=== PATIENT | female | born 1995 | race Asian ===

== ENCOUNTER 2020-04-21 10:31 | Emergency (ER) | payer OTHER ==
[~2020-04-21] VITALS: Ht 154.9 cm; Wt 55.5 kg
[2020-04-21] MEDS ORDERED: ACETAMINOPHEN 500 MG TAB PO ONE (11:15)
--- OUTSIDE RECORDS SUMMARY | 2020-04-21 11:23 | CCD ---
Author Author [facility] Address Unknown Phone Unavailable Support Name Relationship Address Phone UE Next Of Kin Unknown Unavailable [address] Next Of Kin [id number] [place] [id number] Re-disclosure Warning The records that you are about to access may contain information from federally-assisted alcohol or drug abuse programs. If such information is present, then the following federally mandated warning applies: This information has been disclosed to you from records protected by federal confidentiality rules (42 CFR part 2). The federal rules prohibit you from making any further disclosure of this information unless further disclosure is expressly permitted by the written consent of the person to whom it pertains or as otherwise permitted by 42 CFR part 2. A general authorization for the release of medical or other information is NOT sufficient for this purpose. The Federal rules restrict any use of the information to criminally investigate or prosecute any alcohol or drug abuse patient.The records that you are about to access may contain highly sensitive health information, the redisclosure of which is protected by Article 27-F of the [facility] Public Health law. If you continue you may have access to information: Regarding HIV / AIDS; Provided by facilities licensed or operated by the [facility] Office of Mental Health; or Provided by the [facility] Office for People With Developmental Disabilities. If such information is present, then the following [facility] mandated warning applies: This information has been disclosed to you from confidential records which are protected by state law. State law prohibits you from making any further disclosure of this information without the specific written consent of the person to whom it pertains, or as otherwise permitted by law. Any unauthorized further disclosure in violation of state law may result in a fine or penitentiary sentence or both. A general authorization for the release of medical or other information is NOT sufficient authorization for further disc losure. Insurance Providers Payer name Policy type / Coverage type Policy ID Covered constitution party ID Covered constitution party's relationship to prather Policy Prather Plan Information [employer] [id number] [place] [id number]
[2020-04-21 11:31] LABS: BASO # 0.1 10^3/uL (0.0-0.2); BASO % 1.5 % (0.0-1.0); EOS # 0.4 10^3/uL (0.0-0.5); EOS % 5.8 % (0.0-3.0); HEMATOCRIT 38.9 % (36.0-47.0); HEMOGLOBIN 12.7 g/dl (12.0-15.5); LYMPH # 1.9 10^3/uL (1.5-5.0); LYMPH % 31.1 % (24.0-44.0); MEAN CORPUSCULAR HEMOGLOBIN 28.1 pg (27.0-33.0); MEAN CORPUSCULAR HGB CONC 32.6 g/dl (32.0-36.5); MEAN CORPUSCULAR VOLUME 86.1 fl (80.0-96.0); MONO # 0.5 10^3/uL (0.0-0.8); MONO % 7.5 % (2.0-8.0); NEUTROPHILS # 3.3 10^3/uL (1.5-8.5); NEUTROPHILS % 53.9 % (36.0-66.0); PLATELET COUNT, AUTOMATED 282 10^3/uL (150-450); RED BLOOD COUNT 4.52 10^6/uL (4.00-5.40)
[2020-04-21 11:58] LABS: BLOOD UREA NITROGEN 12 MG/DL (7-18); CALCIUM LEVEL 9.1 MG/DL (8.5-10.1); CARBON DIOXIDE LEVEL 30 MEQ/L (21-32); CHLORIDE LEVEL 107 MEQ/L (98-107); CREATININE FOR GFR 0.75 MG/DL (0.55-1.30); GLOMERULAR FILTRATION RATE > 60.0 (>60); GLUCOSE, FASTING 93 MG/DL (70-100); HCG, SERUM QUANTITATIVE < 1.0 MIU/ML; POTASSIUM SERUM 3.6 MEQ/L (3.5-5.1); SODIUM LEVEL 142 MEQ/L (136-145)
[2020-04-21 12:39] LABS: ALT/SGPT 16 U/L (12-78); BILIRUBIN,DIRECT 0.1 MG/DL (0.0-0.2); BILIRUBIN,TOTAL 0.5 MG/DL (0.2-1.0); TOTAL PROTEIN 6.7 GM/DL (6.4-8.2)
--- NOTE | 2020-04-21 14:18 | REP ---
INDICATION: pelvic pain. COMPARISON: None. TECHNIQUE: Transabdominal and transvaginal scanning were performed. FINDINGS: Uterine dimensions are normal at 10.3 x 3.8 x 4.0 cm. Endometrial echo is 0.9 cm thick and centrally placed. No free fluid is seen in the cul-de-sac. Visualized bladder stern are smooth. The right ovary has dimensions of 2.6 x 1.7 x 2.5 cm. It's Doppler flow is normal with a resistive index of 0.62. The left ovary dimensions are normal as well at 2.3 x 1.1 x 2.3 cm. It's Doppler flow was normal with resistive index of 0.66. Transabdominal and transvaginal imaging demonstrates a midline hypoechoic nodule anterior to the vagina at the bladder base. This measures 1.5 x 1.3 by 1.9 cm. It is in the region of the urethra. It is unusual to be able to visualize the bladder floor as clearly as we do in this patient and I am not totally convinced this is an abnormality. A urethral or periurethral cyst could conceivably have this appearance versus a normal urethra and attendant sphincter musculature. This does not appear to be in the vaginal wall but anterior to it. No other abnormality.. IMPRESSION: Possible urethral or periurethral nodule or cyst, 1.5 x 1.3 x 1.9 cm. Pelvic MRI study could be considered for further evaluation if clinically warranted. Otherwise normal pelvic sonography. <Electronically signed by Garcia Chen > 04/21/20 [id number]
[2020-04-21 14:27] LABS: CHLAMYDIA DNA AMPLIFICATION NEGATIVE (NEGATIVE); GC DNA AMPLIFICATION NEGATIVE (NEGATIVE)
[2020-04-21] MEDS ORDERED: ENEMCAP PR (19:00)
[2020-04-21] MEDS ORDERED: MAGN100T PO (19:00)
[2020-04-21] MEDS ORDERED: PROHANCE 279.3MG/ML 5ML VIAL As Ordered ONE (19:03)
--- NOTE | 2020-04-21 19:41 | REPVR ---
PROCEDURE INFORMATION: Exam: MR Pelvis Without and With Contrast Exam date and time: 04/21/2020 7:19 PM Age: 24 years old Clinical indication: Pain and abnormal findings; Abnormal imaging test; Vaginal pain and other: Urethral; Additional info: R/O urethral or periurethral nodule vs abscess TECHNIQUE: Imaging protocol: Magnetic resonance images of the pelvis without and with intravenous contrast. Contrast material: PROHANCE; Contrast volume: 10 ml; Contrast route: INTRAVENOUS (IV); COMPARISON: US PELVIC NON-OB COMPLETE 04/21/2020 1:12 PM FINDINGS: Intraperitoneal space: There is minimal fluid in the cul-de-sac most likely physiologic. Clinical correlation to exclude other causes of cul-de-sac fluid suggested. Reproductive: Bladder and urethra appear unremarkable. Previously sonographically demonstrated nodular density in the region of the urethra is not visualized on this examination. Ovaries and adnexal regions appear unremarkable. Bones/joints: Unremarkable. No fracture. Soft tissues: Unremarkable. IMPRESSION: 1. There is minimal fluid in the cul-de-sac most likely physiologic. Clinical correlation to exclude other causes of cul-de-sac fluid suggested. 2. Bladder and urethra appear unremarkable. Previously sonographically demonstrated nodular density in the region of the urethra is not visualized on this examination. Electronically signed by: Robert Johnson On 04/21/2020 19:41:34 PM
[2020-04-21 19:49] VITALS: BP 118/70
[2020-04-22] MEDS ORDERED: METR-265 PO (08:05)
--- NOTE | 2020-04-23 14:18 | ED PDOC ---
Post-Departure Follow-Up radiology report faxed to patti Olivas Sarah MD Apr 23, 2020 14:18
== END 2020-04-21 19:54 | disposition home or self-care (01) ==
LOC: M ED 10:31
DX: N94.10 Unspecified dyspareunia (principal); Z87.59 Personal history of other complications of pregnancy, childbirth and the puerperium; R93.5 Abnormal findings on diagnostic imaging of other abdominal regions, including retroperitoneum
CPT/HCPCS: 72197; 76830; 76856; 80048; 80076; 81001; 84702; 85025; 87210; 87661; 93976; 99284; A9576

== ENCOUNTER → 2020-07-15 | Outpatient (REF) | payer OTHER ==
[~2020-07-15] MED LIST: ENEMCAP PR; MAGN100T PO; METR-265 PO
[2020-07-15 19:46] LABS: CHLAMYDIA DNA AMPLIFICATION NEGATIVE (NEGATIVE); GC DNA AMPLIFICATION NEGATIVE (NEGATIVE)
== END ==
LOC: M SFHCWAGY 17:01
PROVIDERS: ATTEND Nurse Practitioner Women's Health
DX: Z12.4 Encounter for screening for malignant neoplasm of cervix (principal)
CPT/HCPCS: 87491; 87591; G0123

== ENCOUNTER 2021-02-11 13:34 | Emergency (ER) | payer OTHER ==
[~2021-02-11] VITALS: Ht 154.9 cm; Wt 52.8 kg
[2021-02-11 13:34] VITALS: BP 127/57
[2021-02-11] MEDS ORDERED: IBUP200C29 PO (13:49)
[2021-02-11] MEDS ORDERED: NS 1,000 ML IV ONE (18:00)
[2021-02-11] MEDS ORDERED: KETOROLAC 30 MG/ML 1ML VIAL IV ONE (18:00)
[2021-02-11] MEDS ORDERED: diphenhydrAMINE 50MG/ML VIAL (J1200) IV ONE (18:00)
[2021-02-11] MEDS ORDERED: ONDANSETRON 4MG/2ML VIAL IV ONE (18:00)
[2021-02-11 18:30] LABS: HEMATOCRIT 38.8 % (36.0-47.0); HEMOGLOBIN 13.1 g/dl (12.0-15.5); MEAN CORPUSCULAR HEMOGLOBIN 28.9 pg (27.0-33.0); MEAN CORPUSCULAR HGB CONC 33.8 g/dl (32.0-36.5); MEAN CORPUSCULAR VOLUME 85.7 fl (80.0-96.0); PLATELET COUNT, AUTOMATED 292 10^3/uL (150-450); RED BLOOD COUNT 4.53 10^6/uL (4.00-5.40); WHITE BLOOD COUNT 6.3 10^3/uL (4.0-10.0)
[2021-02-11] MEDS ORDERED: SUMAtriptan SUCCINATE 25 MG TAB PO ONE (19:55)
[2021-02-11] MEDS ORDERED: ACETAMINOPHEN 500 MG TAB PO ONE (19:55)
[2021-02-11] MEDS ORDERED: SUMA50TA2 PO (20:47)
== END 2021-02-11 21:03 | disposition home or self-care (01) ==
LOC: M ED 13:34
DX: G43.909 Migraine, unspecified, not intractable, without status migrainosus (principal); Z86.69 Personal history of other diseases of the nervous system and sense organs
CPT/HCPCS: 70450; 80047; 84702; 85027; 96374; 96375; 99283; J1200; J1885; J2405

== ENCOUNTER 2021-10-18 19:16 | Emergency (ER) | payer OTHER ==
[~2021-10-18] VITALS: Ht 154.9 cm; Wt 54.5 kg
[~2021-10-18 19:16] MED LIST changes: +IBUP200C29 PO; +SUMA50TA2 PO
[2021-10-18 20:57] LABS: RBC, URINE 0-1 /hpf (0-3)
[2021-10-18 20:58] LABS: BACTERIA, URINE SMALL AMOUNT; HYALINE CAST, URINE NONE SEEN /lpf (0-1); MUCUS, URINE MOD AMOUNT (NEGATIVE); SQUAMOUS EPITHELIAL CELL URINE LARGE AMOUNT /hpf (SMALL AMT)
[2021-10-18] MEDS ORDERED: ONDANSETRON 4MG 2ML VIAL IV ONE (21:55)
[2021-10-18] MEDS ORDERED: NS 1,000 ML IV ONE (21:55)
[2021-10-18] MEDS ORDERED: ACETAMINOPHEN 325 MG TAB PO ONE (22:15)
[2021-10-18 22:33] LABS: BASO # 0.1 10^3/uL (0.0-0.2); BASO % 0.5 % (0.0-1.0); EOS % 0.3 % (0.0-3.0); HEMATOCRIT 40.3 % (36.0-47.0); HEMOGLOBIN 13.7 g/dl (12.0-15.5); LYMPH # 0.8 10^3/uL (1.5-5.0); LYMPH % 6.5 % (24.0-44.0); MEAN CORPUSCULAR HEMOGLOBIN 28.5 pg (27.0-33.0); MEAN CORPUSCULAR VOLUME 83.8 fl (80.0-96.0); MONO # 0.7 10^3/uL (0.0-0.8); MONO % 5.9 % (2.0-8.0); NEUTROPHILS # 10.2 10^3/uL (1.5-8.5); NEUTROPHILS % 86.4 % (36.0-66.0); PLATELET COUNT, AUTOMATED 302 10^3/uL (150-450); RED BLOOD COUNT 4.81 10^6/uL (4.00-5.40); WHITE BLOOD COUNT 11.8 10^3/uL (4.0-10.0)
[2021-10-18] MEDS ORDERED: KETOROLAC 30 MG/ML 1ML VIAL IV ONE (22:35)
[2021-10-18] MEDS ORDERED: ISOVUE-370 76% 100ML VIAL As Ordered ONE (22:39)
[2021-10-18 23:00] LABS: ALBUMIN 4.3 GM/DL (3.2-5.2); BILIRUBIN,DIRECT 0.2 MG/DL (0.0-0.2); BILIRUBIN,TOTAL 0.8 MG/DL (0.2-1.0); TOTAL PROTEIN 7.5 GM/DL (6.4-8.2)
[2021-10-18 23:53] VITALS: BP 109/47
[2021-10-19] MEDS ORDERED: SULF1TAB23 PO (00:24)
[2021-10-19] MEDS ORDERED: ONDA4TAB6 PO (00:25)
[2021-10-19] MEDS ORDERED: cefTRIAXone SOD 1 GM in D5W MINI-BAG PLUS 50 ML IV ONE (00:25)
[2021-10-19] MEDS ORDERED: KETO10TAB PO (00:25)
== END 2021-10-19 01:16 | disposition home or self-care (01) ==
LOC: M ED 19:16
DX: N10 Acute pyelonephritis (principal); G43.909 Migraine, unspecified, not intractable, without status migrainosus; Z79.899 Other long term (current) drug therapy
CPT/HCPCS: 74177; 80047; 80076; 81000; 83605; 83690; 84702; 85025; 87040; 87077; 87086; 87428; 96365; 96375; 99284; J0696; J1885; J2405; Q9967

== ENCOUNTER → 2022-03-24 | Outpatient (CLI) | payer OTHER ==
[~2022-03-24] MED LIST changes: +KETO10TAB PO; +ONDA4TAB6 PO; +SULF1TAB23 PO
[2022-03-24 18:11] LABS: BASO # 0.1 10^3/uL (0.0-0.2); BASO % 1.6 % (0.0-1.0); EOS # 0.5 10^3/uL (0.0-0.5); EOS % 7.1 % (0.0-3.0); HEMATOCRIT 39.9 % (36.0-47.0); HEMOGLOBIN 13.1 g/dl (12.0-15.5); LYMPH # 1.9 10^3/uL (1.5-5.0); LYMPH % 24.9 % (24.0-44.0); MEAN CORPUSCULAR HEMOGLOBIN 28.3 pg (27.0-33.0); MEAN CORPUSCULAR HGB CONC 32.8 g/dl (32.0-36.5); MEAN CORPUSCULAR VOLUME 86.2 fl (80.0-96.0); MONO # 0.5 10^3/uL (0.0-0.8); NEUTROPHILS # 4.5 10^3/uL (1.5-8.5); NEUTROPHILS % 59.3 % (36.0-66.0); PLATELET COUNT, AUTOMATED 307 10^3/uL (150-450); RED BLOOD COUNT 4.63 10^6/uL (4.00-5.40); WHITE BLOOD COUNT 7.6 10^3/uL (4.0-10.0)
[2022-03-24 18:54] LABS: ALBUMIN 4.5 G/DL (3.2-5.2); ALKALINE PHOSPHATASE 38 U/L (46-116); ALT/SGPT 20 U/L (7.0-40); AST/SGOT 21 U/L (<34); BILIRUBIN,TOTAL 0.5 MG/DL (0.3-1.2); BLOOD UREA NITROGEN 9 MG/DL (9-23); CALCIUM LEVEL 9.1 MG/DL (8.5-10.1); CARBON DIOXIDE LEVEL 26 MMOL/L (20-31); CHLORIDE LEVEL 104 MMOL/L (98-107); CREATININE FOR GFR 0.67 MG/DL (0.55-1.30); GLOMERULAR FILTRATION RATE > 60.0 (>60); GLUCOSE, FASTING 90 MG/DL (60-100); SODIUM LEVEL 137 MMOL/L (136-145); TOTAL PROTEIN 7.3 G/DL (5.7-8.2)
[2022-03-24 18:55] LABS: FREE T4 1.16 NG/DL (0.89-1.76)
[2022-03-24 18:56] LABS: THYROID STIMULATING HORMONE 0.955 uIU/ML (0.55-4.78)
[2022-03-24 19:13] LABS: HEPATITIS B SURFACE ANTIGEN NEGATIVE (NEGATIVE)
[2022-03-24 19:18] LABS: GC DNA AMPLIFICATION NEGATIVE (NEGATIVE)
[2022-03-24 19:26] LABS: HIV 1&2 SCREEN CENTAUR NEGATIVE (NEGATIVE)
[2022-03-24 19:34] LABS: HEPATITIS B CORE ANTIBODY IGM NEGATIVE (NEGATIVE)
== END ==
LOC: M PLALAB 14:50
PROVIDERS: ATTEND Physician Assistant
DX: R39.9 Unspecified symptoms and signs involving the genitourinary system (principal); N89.8 Other specified noninflammatory disorders of vagina; Z11.3 Encounter for screening for infections with a predominantly sexual mode of transmission; F41.8 Other specified anxiety disorders